=== PATIENT | female | born 1945 | race Caucasian/White ===

== ENCOUNTER 2017-06-06 07:48 | Day surgery (SDC) | payer MEDICARE, OTHER ==
[~2017-06-06 07:48] MED LIST: Propofol 200 MG/20 ML SDV ONE; fentaNYL 100 MCG/2 ML SDV ONE
[2017-06-06] MEDS ORDERED: Sodium Chloride 0.9% 10 ML Syringe FLUSH PRN (08:30)
[2017-06-06] MEDS ORDERED: Lidocaine 1%/Sod Bicarbonate in NS 8.4% 1 ML Syringe PRN (08:30)
[2017-06-06] MEDS ORDERED: Lactated Ringers 1,000 ML IV SCH (08:30)
--- NOTE | 2017-06-06 09:12 | PCM.PREANE ---
Preanesthetic Assessment - Procedure Proposed Procedure: Screening colonoscopy - Anesthesia/Transfusion/Family Hx Anesthesia History: Prior Anesthesia Without Reaction Family History of Anesthesia Reaction: No Transfusion History: No Prior Transfusion(s) Type of Transfusion Reactions: Reports: Unknown Intubation History: Unknown - Review of Systems General: No Symptoms Pulmonary: Other (MARBELLA with CPAP, PE 2009) Cardiovascular: Other (CAD, HTN, HLD) Gastrointestinal: No Symptoms Neurological: No Symptoms Other: Reports: None, Depression, Anxiety - Physical Assessment NPO Status Date: 06/05/17 NPO Status Time: 20:00 O2 Sat by Pulse Oximetry: 96 Respiratory Rate: 20 Vital Signs: Last Vital Signs Temp 37.0 C 06/06/17 08:05 Pulse 82 06/06/17 08:05 Resp 20 06/06/17 08:05 BP 196/97 H 06/06/17 08:05 Pulse Ox 96 06/06/17 08:05 Height: 1.68 m Weight: 127.459 kg ASA Class: 3 Mental Status: Alert & Oriented x3 Airway Class: Mallampati = 2 Dentition: Reports: Normal Dentition Thyro-Mental Finger Breadths: 3 Mouth Opening Finger Breadths: 3 ROM/Head Extension: Full Lungs: Clear to Auscultation, Normal Respiratory Effort Cardiovascular: Regular Rate, Regular Rhythm - Allergies Allergies/Adverse Reactions: Allergies Allergy/AdvReac Type Severity Reaction Status Date / Time risperidone Allergy Cannot Verified 06/05/17 14:42 Remember SSRI Allergy Cannot Uncoded 06/05/17 14:42 Remember - Blood Blood Available: No Product(s) Available: None - Anesthesia Plan Pre-Op Medication Ordered: None - Acknowledgements Anesthesia Type Planned: MAC Pt an Appropriate Candidate for the Planned Anesthesia: Yes Alternatives and Risks of Anesthesia Discussed w Pt/Guardian: Yes Pt/Guardian Understands and Agrees with Anesthesia Plan: Yes PreAnesthesia Questionnaire HEENT History: Reports: Impaired Vision Other HEENT History: wears tri-focals Cardiovascular History: Reports: CAD, High Cholesterol, Hypertension, Other ( See Below) Other Cardiovascular History: PE in lung Respiratory History: Reports: PE, Sleep Apnea Gastrointestinal History: Reports: None Genitourinary History: Reports: Urinary Incontinence [employer] History: Reports: Musculoskeletal History: Reports: Osteoarthritis Neurological History: Reports: None Psychiatric History: Reports: Anxiety, Depression, OCD, Schizophrenia Endocrine/Metabolic History: Reports: Obesity/BMI 30+ Hematologic History: Reports: None, Other (See Below) Immunologic History: Reports: None Oncologic (Cancer) History: Reports: None Dermatologic History: Reports: None - Infectious Disease History Infectious Disease History: Reports: Chicken Pox - Past Surgical History Head Surgeries/Procedures: Reports: None HEENT Surgical History: Reports: Tonsillectomy Cardiovascular Surgical History: Reports: None Respiratory Surgical History: Reports: None GI Surgical History: Reports: None Female Surgical History: Reports: Hysterectomy Male Surgical History: Reports: None Endocrine Surgical History: Reports: None Neurological Surgical History: Reports: None Musculoskeletal Surgical History: Reports: Hip Replacement Oncologic Surgical History: Reports: None Dermatological Surgical History: Reports: None - SUBSTANCE USE Smoking Status *Q: Never Smoker Second Hand Smoke Exposure: No Recreational Drug Use History: No - HOME MEDS Home Medications: Home Meds Potassium Chloride [Klor-Con M20] 1 tab PO BID 10/12/13 [History] Simvastatin [Zocor] 20 mg PO DAILY 10/12/13 [History] buPROPion HCl [Wellbutrin SR] 300 mg PO DAILY 10/12/13 [History] Aspirin 81 mg PO DAILY 11/17/15 [History] ClomiPRAMINE [ClomiPRAMINE HCl] 50 mg PO BID 11/17/15 [History] Ezetimibe [Zetia] 10 mg PO DAILY 11/17/15 [History] Lisinopril 20 mg PO QPM 11/17/15 [History] Acetaminophen [Tylenol Extra Strength] 1,000 mg PO Q6H PRN 06/05/17 [History] Aspirin [Aspirin EC] 500 mg PO DAILY PRN 06/05/17 [History] Cetirizine HCl [Zyrtec] 10 mg PO DAILY PRN 06/05/17 [History] LORazepam [Ativan] 0.5 mg PO BID PRN 06/05/17 [History] Mirabegron [Myrbetriq] 25 mg PO DAILY 06/05/17 [History] Multivitamin [Zoo Chews] 1 tab PO DAILY 06/05/17 [History] Nitroglycerin [Nitrostat] 0.4 mg SL Q5M PRN 06/05/17 [History] Oxybutynin Chloride [Ditropan Xl] 15 mg PO DAILY 06/05/17 [History] Polyethylene Glycol 3350 [MiraLAX] 1 dose PO Q48H 06/05/17 [History] Amoxicillin 4 cap PO ONETIME 06/06/17 [History] - CURRENT (IN HOUSE) MEDS Current Meds: Current Medications Lactated Ringer's (Ringers, Lactated) 1,000 mls @ 125 mls/hr IV ASDIRECTED JABARI Stop: 06/06/17 23:00 Last Admin: 06/06/17 08:15 Dose: 125 mls/hr Lidocaine/Sodium Bicarbonate (Buffered Lidocaine 1% In Ns 8.4%) 0.25 ml .XX ONETIME PRN PRN Reason: Prior to IV Start Stop: 06/06/17 18:00 Last Admin: 06/06/17 08:15 Dose: 0.25 ml Sodium Chloride (Saline Flush) 10 ml FLUSH ASDIRECTED PRN PRN Reason: Keep Vein Open Stop: 06/06/17 18:00 Discontinued Medications Fentanyl (Sublimaze) Confirm Administered Dose 100 mcg .ROUTE .STK-MED ONE Stop: 06/06/17 07:10 Propofol (Diprivan 20 Ml) Confirm Administered Dose 200 mg .ROUTE .STK-MED ONE Stop: 06/06/17 07:09
[2017-06-06] MEDS ORDERED: Propofol 200 MG/20 ML SDV ONE (09:42)
--- NOTE | 2017-06-06 10:07 | PCM48HPAN ---
Post Anesthesia Note - EVALUATION WITHIN 48HRS OF ANESTHETIC Vital Signs in Normal Range: Yes Patient Participated in Evaluation: Yes Respiratory Function Stable: Yes Airway Patent: Yes Cardiovascular Function Stable: Yes Hydration Status Stable: Yes Pain Control Satisfactory: Yes Nausea and Vomiting Control Satisfactory: Yes Mental Status Recovered: Yes
[2017-06-06 10:09] VITALS: BP 148/107
== END 2017-06-06 11:18 | disposition home or self-care (01) ==
LOC: JD.SDS 07:48
PROVIDERS: ATTEND Surgery
DX: Z12.11 Encounter for screening for malignant neoplasm of colon (principal); K57.30 Diverticulosis of large intestine without perforation or abscess without bleeding; D17.79 Benign lipomatous neoplasm of other sites; I25.10 Atherosclerotic heart disease of native coronary artery without angina pectoris; I10 Essential (primary) hypertension; F32.9 Major depressive disorder, single episode, unspecified; F41.9 Anxiety disorder, unspecified; G47.30 Sleep apnea, unspecified; E66.01 Morbid (severe) obesity due to excess calories; Z68.42 Body mass index [BMI] 45.0-49.9, adult; Z88.8 Allergy status to other drugs, medicaments and biological substances
CPT/HCPCS: G0121; J3010; J7120; 00810; J2704

== ENCOUNTER 2017-06-28 12:30 | Emergency (ER) | payer MEDICARE, OTHER ==
[2017-06-28 12:41] VITALS: BP 179/97
[2017-06-28] MEDS ORDERED: Meclizine 12.5 MG Tab PO ONE (13:07)
[2017-06-28] MEDS ORDERED: Sodium Chloride 0.9% 10 ML Syringe FLUSH PRN ×2 (13:07→15:11)
--- NOTE | 2017-06-28 13:12 | EDM.PDOC ---
ED HPI GENERAL MEDICAL PROBLEM - General Chief Complaint: Neurological Problem Stated Complaint: VERTIGO/NOSEBLEED Time Seen by Provider: 06/28/17 12:49 Source of Information: Reports: Patient History Limitations: Reports: No Limitations - History of Present Illness INITIAL COMMENTS - FREE TEXT/NARRATIVE: Patient is a 71-year-old female who presents to the ED complaining of dizziness. States 2 days ago she developed severe vertigo described as the room spinning. States the room spinning sensation has resolved but still experiences some dizziness with bending over. States a sensation of vertigo was only short acting resolve quickly. Since then she's been experiencing increased frequency of dizziness with bending over that resolves with standing back up. This a.m. developed mild bloody nose and has some fluid coming from her left ear. This was clear in nature. States it feels like her head is full but notes there is no sinus congestion, stuffy nose, runny nose, sore throat, cough, fever, headache, vision changes, chest pain, shortness of breath at rest, nausea/ vomiting, increased swelling to her legs, abdominal pain, or dysuria. She has no previous history of vertigo, strokes, or heart attack. She does have a history of blood clot to her lungs in 1999 with unclear etiology. She states with exertion she is more short of breath. Which is unusual. She has a history of coronary disease, high cholesterol, hypertension, sleep apnea, urinary incontinence, anxiety, depression, OCD, schizophrenia, obesity, and cataracts. Current medications include potassium chloride, simvastatin, Wellbutrin, aspirin , clomipramine, Zetia, lisinopril, acetaminophen, Zyrtec, lorazepam, Mirabegron , nitroglycerin, Ditropan, MiraLAX. See med list for dosages. Surgical history includes: Tonsillectomy, hysterectomy, hip replacement 2. - Related Data Allergies Allergy/AdvReac Type Severity Reaction Status Date / Time risperidone Allergy Cannot Verified 06/05/17 14:42 Remember SSRI Allergy Cannot Uncoded 06/05/17 14:42 Remember Home Meds: Home Meds Potassium Chloride [Klor-Con M20] 20 meq PO BID 10/12/13 [History] Simvastatin [Zocor] 20 mg PO DAILY 10/12/13 [History] buPROPion HCl [Wellbutrin SR] 300 mg PO DAILY 10/12/13 [History] Aspirin 81 mg PO DAILY 11/17/15 [History] ClomiPRAMINE [ClomiPRAMINE HCl] 50 mg PO BID 11/17/15 [History] Ezetimibe [Zetia] 10 mg PO DAILY 11/17/15 [History] Lisinopril 20 mg PO QPM 11/17/15 [History] Acetaminophen [Tylenol Extra Strength] 1,000 mg PO Q6H PRN 06/05/17 [History] Cetirizine HCl [Zyrtec] 10 mg PO DAILY PRN 06/05/17 [History] LORazepam [Ativan] 0.5 mg PO BID PRN 06/05/17 [History] Mirabegron [Myrbetriq] 25 mg PO DAILY 06/05/17 [History] Multivitamin [Zoo Chews] 1 tab PO DAILY 06/05/17 [History] Nitroglycerin [Nitrostat] 0.4 mg SL Q5M PRN 06/05/17 [History] Oxybutynin Chloride [Ditropan Xl] 15 mg PO DAILY 06/05/17 [History] Polyethylene Glycol 3350 [MiraLAX] 1 dose PO Q48H 06/05/17 [History] Apixaban [Eliquis] 5 mg PO ASDIRECTED #64 tablet 06/28/17 [Rx] Past Medical History HEENT History: Reports: Impaired Vision Other HEENT History: wears tri-focals Cardiovascular History: Reports: CAD, High Cholesterol, Hypertension, Other ( See Below) Other Cardiovascular History: PE in lung Respiratory History: Reports: PE, Sleep Apnea Gastrointestinal History: Reports: None Genitourinary History: Reports: Urinary Incontinence [employer] History: Reports: Musculoskeletal History: Reports: Osteoarthritis Neurological History: Reports: None Psychiatric History: Reports: Anxiety, Depression, OCD, Schizophrenia Endocrine/Metabolic History: Reports: Obesity/BMI 30+ Hematologic History: Reports: None Immunologic History: Reports: None Oncologic (Cancer) History: Reports: None Dermatologic History: Reports: None - Infectious Disease History Infectious Disease History: Reports: Chicken Pox - Past Surgical History Head Surgeries/Procedures: Reports: None HEENT Surgical History: Reports: Tonsillectomy Cardiovascular Surgical History: Reports: None Respiratory Surgical History: Reports: None GI Surgical History: Reports: None Female Surgical History: Reports: Hysterectomy Endocrine Surgical History: Reports: None Neurological Surgical History: Reports: None Musculoskeletal Surgical History: Reports: Hip Replacement Oncologic Surgical History: Reports: None Dermatological Surgical History: Reports: None Social & Family History - Family History Family Medical History: Noncontributory - Tobacco Use Smoking Status *Q: Unknown Ever Smoked Second Hand Smoke Exposure: No - Caffeine Use Caffeine Use: Reports: Coffee - Recreational Drug Use Recreational Drug Use: No - Living Situation & Occupation Living situation: Reports: , with Spouse Occupation: Retired ED ROS GENERAL - Review of Systems Review Of Systems: ROS reveals no pertinent complaints other than HPI. ED EXAM, DIZZINESS - Physical Exam Exam: See Below Exam Limited By: No Limitations General Appearance: Alert, WD/WN, Anxious Eye Exam: Bilateral Eye: EOMI, Nystagmus (none noted), PERRL Nystagmus: No: worsens with head to L, worsens with head to R, reproducible, reversible, constant, short duration Ears: Normal External Exam, Normal Canal, Hearing Grossly Normal, Normal TMs Nose: Normal Inspection, Normal Mucosa, No Blood Throat/Mouth: Normal Inspection, Normal Oropharynx, Normal Voice, No Airway Compromise Head Exam: Atraumatic, Normocephalic Neck: Normal Inspection, Supple, Non-Tender, Full Range of Motion Respiratory/Chest: No Respiratory Distress, Lungs Clear, Normal Breath Sounds, No Accessory Muscle Use, Chest Non-Tender Cardiovascular: Normal Peripheral Pulses, Regular Rate, Rhythm GI/Abdominal: Normal Bowel Sounds, Soft, Non-Tender, No Organomegaly, No Distention Neurological: Alert, Normal Mood/Affect, Normal Dorsiflexion, CN II-XII Intact, Normal Plantar Flexion, No Motor/Sensory Deficits, Oriented x 3 Back Exam: Normal Inspection, Full Range of Motion Extremities: Normal Inspection, Normal Range of Motion, Non-Tender, No Pedal Edema, Normal Capillary Refill Psychiatric: Normal Affect, Normal Mood Skin Exam: Warm, Dry, Intact, Normal Color, No Rash Course - Vital Signs Last Recorded V/S: Last Vital Signs Temp 97.5 F 06/28/17 12:40 Pulse 73 06/28/17 12:40 Resp 16 06/28/17 12:40 BP 179/97 H 06/28/17 12:40 Pulse Ox 98 06/28/17 12:40 Orthostatic Blood Pressure [ 176/102 Standing] Orthostatic Blood Pressure [ 167/98 Sitting] Orthostatic Blood Pressure [ 157/81 Supine] - Orders/Labs/Meds Orders: Active Orders 24 hr Category Date Time Status EKG Documentation Completion [RC] STAT Care 06/28/17 13:07 Active Orthostatic Vital Signs [RC] ASDIRECTED Care 06/28/17 13:07 Active Peripheral IV Care [RC] . DIRECTED Care 06/28/17 13:07 Active Chest PE [Ang Chest] [CT] Stat Exams 06/28/17 14:40 Taken Sodium Chloride 0.9% [Normal Saline] 1,000 ml Med 06/28/17 14:15 Active IV ASDIRECTED Sodium Chloride 0.9% [Normal Saline] 100 ml Med 06/28/17 15:15 Active IV ASDIRECTED Sodium Chloride 0.9% [Saline Flush] Med 06/28/17 13:07 Active 10 ml FLUSH ASDIRECTED PRN Sodium Chloride 0.9% [Saline Flush] Med 06/28/17 15:11 Active 10 ml FLUSH ONETIME PRN Peripheral IV Insertion Adult [OM.PC] Routine Oth 06/28/17 13:07 Ordered Medication Orders Sodium Chloride (Normal Saline) 1,000 mls @ 250 mls/hr IV ASDIRECTED JABARI Last Admin: 06/28/17 14:28 Dose: 250 mls/hr Sodium Chloride (Normal Saline) 100 mls @ 80 mls/hr IV ASDIRECTED JABARI Last Admin: 06/28/17 15:26 Dose: 80 mls/hr Sodium Chloride (Saline Flush) 10 ml FLUSH ASDIRECTED PRN PRN Reason: Keep Vein Open Last Admin: 06/28/17 14:05 Dose: 10 ml Sodium Chloride (Saline Flush) 10 ml FLUSH ONETIME PRN PRN Reason: IV FLUSH Last Admin: 06/28/17 15:26 Dose: 10 ml Labs: Laboratory Tests 06/28/17 06/28/17 06/28/17 Range/Units 13:25 13:25 13:25 WBC 6.34 (3.98-10.04) K/mm3 RBC 4.43 (3.98-5.22) M/mm3 Hgb 13.3 (11.2-15.7) gm/L Hct 41.0 (34.1-44.9) % MCV 92.6 (79.4-94.8) fl MCH 30.0 (25.6-32.2) pg MCHC 32.4 (32.2-35.5) g/dl RDW Std Deviation 48.6 H (36.4-46.3) fL Plt Count 311 (182-369) K/mm3 MPV 9.5 (9.4-12.3) fl Neut % (Auto) 66.9 (34.0-71.1) % Lymph % (Auto) 19.6 (19.3-51.7) % [place] % (Auto) 8.7 (4.7-12.5) % Eos % (Auto) 4.1 (0.7-5.8) Baso % (Auto) 0.5 (0.1-1.2) % Neut # (Auto) 4.25 (1.56-6.13) K/mm3 Lymph # (Auto) 1.24 (1.18-3.74) K/mm3 Gladwin # (Auto) 0.55 H (0.24-0.36) K/mm3 Eos # (Auto) 0.26 (0.04-0.36) K/mm3 Baso # (Auto) 0.03 (0.01-0.08) K/mm3 D-Dimer, Quantitative 1.08 H (0.19-0.59) mg/L Sodium 138 (136-145) mEq/L Potassium 3.9 (3.5-5.1) mEq/L Chloride 103 (98-107) mEq/L Carbon Dioxide 27 (21-32) mEq/L Anion Gap 11.9 (5-15) BUN 12 (7-18) mg/dL Creatinine 0.9 (0.55-1.02) mg/dL Est Cr Clr Drug Dosing 52.89 mL/min Estimated GFR (MDRD) > 60 (>60) mL/min BUN/Creatinine Ratio 13.3 L (14-18) Glucose 102 (83-115) mg/dL Calcium 9.0 (8.5-10.1) mg/dL Total Bilirubin 0.4 (0.2-1.0) mg/dL AST 22 (15-37) U/L ALT 30 (14-59) U/L Alkaline Phosphatase 120 H (46-116) U/L Troponin I 0.018 (0.00-0.056) ng/mL Total Protein 7.7 (6.4-8.2) g/dl Albumin 3.4 (3.4-5.0) g/dl Globulin 4.3 gm/dL Albumin/Globulin Ratio 0.8 L (1-2) TSH 3rd Generation 2.243 (0.358-3.74) uIU/mL Urine Color (Yellow) Urine Appearance (Clear) Urine pH (5.0-8.0) Ur Specific [place] (1.005-1.030) Urine Protein (Negative) Urine Glucose (UA) (Negative) Urine Ketones (Negative) Urine Occult Blood (Negative) Urine Nitrite (Negative) Urine Bilirubin (Negative) Urine Urobilinogen (0.2-1.0) Ur Leukocyte Esterase (Negative) Urine RBC (0-5) /hpf Urine WBC (0-5) /hpf Ur Epithelial Cells (0-5) /hpf Urine Bacteria (FEW) /hpf Urine Mucus (FEW) /hpf 06/28/17 Range/Units 13:52 WBC (3.98-10.04) K/mm3 RBC (3.98-5.22) M/mm3 Hgb (11.2-15.7) gm/L Hct (34.1-44.9) % MCV (79.4-94.8) fl MCH (25.6-32.2) pg MCHC (32.2-35.5) g/dl RDW Std Deviation (36.4-46.3) fL Plt Count (182-369) K/mm3 MPV (9.4-12.3) fl Neut % (Auto) (34.0-71.1) % Lymph % (Auto) (19.3-51.7) % Glad[place] % (Auto) (4.7-12.5) % Eos % (Auto) (0.7-5.8) Baso % (Auto) (0.1-1.2) % Neut # (Auto) (1.56-6.13) K/mm3 Lymph # (Auto) (1.18-3.74) K/mm3 Gladwin # (Auto) (0.24-0.36) K/mm3 Eos # (Auto) (0.04-0.36) K/mm3 Baso # (Auto) (0.01-0.08) K/mm3 D-Dimer, Quantitative (0.19-0.59) mg/L Sodium (136-145) mEq/L Potassium (3.5-5.1) mEq/L Chloride (98-107) mEq/L Carbon Dioxide (21-32) mEq/L Anion Gap (5-15) BUN (7-18) mg/dL Creatinine (0.55-1.02) mg/dL Est Cr Clr Drug Dosing mL/min Estimated GFR (MDRD) (>60) mL/min BUN/Creatinine Ratio (14-18) Glucose (83-115) mg/dL Calcium (8.5-10.1) mg/dL Total Bilirubin (0.2-1.0) mg/dL AST (15-37) U/L ALT (14-59) U/L Alkaline Phosphatase (46-116) U/L Troponin I (0.00-0.056) ng/mL Total Protein (6.4-8.2) g/dl Albumin (3.4-5.0) g/dl Globulin gm/dL Albumin/Globulin Ratio (1-2) TSH 3rd Generation (0.358-3.74) uIU/mL Urine Color Yellow (Yellow) Urine Appearance Clear (Clear) Urine pH 7.0 (5.0-8.0) Ur Specific [place] 1.025 (1.005-1.030) Urine Protein 1+ H (Negative) Urine Glucose (UA) Negative (Negative) Urine Ketones Negative (Negative) Urine Occult Blood Trace-intact H (Negative) Urine Nitrite Negative (Negative) Urine Bilirubin Negative (Negative) Urine Urobilinogen 0.2 (0.2-1.0) Ur Leukocyte Esterase Negative (Negative) Urine RBC 0-5 (0-5) /hpf Urine WBC 0-5 (0-5) /hpf Ur Epithelial Cells 5-10 H (0-5) /hpf Urine Bacteria Moderate H (FEW) /hpf Urine Mucus Moderate H (FEW) /hpf Meds: Medications Generic Name Dose Route Start Last Admin Trade Name Freq PRN Reason Stop Dose Admin Sodium Chloride 1,000 mls @ 250 mls/hr 06/28/17 14:15 06/28/17 14:28 Normal Saline IV 250 mls/hr ASDIRECTED JABARI Administration Sodium Chloride 100 mls @ 80 mls/hr 06/28/17 15:15 06/28/17 15:26 Normal Saline IV 80 mls/hr ASDIRECTED JABARI Administration Sodium Chloride 10 ml 06/28/17 13:07 06/28/17 14:05 Saline Flush FLUSH 10 ml ASDIRECTED PRN Administration Keep Vein Open Sodium Chloride 10 ml 06/28/17 15:11 06/28/17 15:26 Saline Flush FLUSH 10 ml ONETIME PRN Administration IV FLUSH Discontinued Medications Generic Name Dose Route Start Last Admin Trade Name Nanette PRN Reason Stop Dose Admin Apixaban 10 mg 06/28/17 17:25 06/28/17 17:39 Eliquis PO 06/28/17 17:26 10 mg ONETIME ONE Administration Iopamidol 100 ml 06/28/17 15:11 06/28/17 15:26 Isovue-370 (76%) IVPUSH 06/28/17 15:12 100 ml ONETIME ONE Administration Meclizine HCl 12.5 mg 06/28/17 13:07 06/28/17 13:18 Antivert PO 06/28/17 13:08 12.5 mg ONETIME ONE Administration - Re-Assessments/Exams Free Text/Narrative Re-Assessment/Exam: IV established. Administered meclizine 12.5 mg by mouth. Initial labs and studies include CBC, chem 14, troponin, TSH, d-dimer, UA, and EKG. 06/28/17 13:20 Orthostatic vitals were negative. 06/28/17 13:34 EKG sinus rhythm at a rate of 68 with left anterior fascicular block. No acute ST changes noted. 06/28/17 14:09 DDimer 1.08, Ordered NS 250 mls/hr in preparation for CTA of the chest. Awaiting for results of remaining labs. 06/28/17 14:42 Labs reviewed: CBC and chem 14 were essentially normal. TSH within normal limits. Troponin 0.018. UA positive for protein, trace blood, bacteria moderate, UA mucus moderate, epithelials 5-10 presumed contaminated. Due to elevated d-dimer and symptoms of dizziness along with shortness of breath with exertion I have ordered a CTA of the chest to evaluate for PE. She has a history of PE in the past. 06/28/17 15:56 CTA of the chest impression: Small peripheral pulmonary embolism in the right upper lobe. New 8 mm pulmonary nodule in lingual. Minimal sludge versus tiny calculi in the gallbladder. 1610 I have discussed lab results and CT study with the patient. Patient has a small PE to the right upper lobe. she states previous PE was the left lung. Patient was on warfarin with Lovenox injections with first PE. She required prolonged hospitalization because her INR would not increase. I offered to start the patient on xarelto, eliquis, or warfarin. Patient cannot make the decision on her own. Request son to be in the room to help make decision. 06/28/17 16:[address] scan with son. Discussed risks, benefits, and alternatives to each medication (xarelto, eliquis, and warfarin) with patient and son. They have elected to go with eliquis. Eliquis will have no interactions with current medications she is on. First dose of eliquis given here. Discharge instructions provided as documented. Departure - Departure Time of Disposition: 17:26 Disposition: Home, Self-Care 01 Condition: Good Clinical Impression: Pulmonary nodule, right, Dizziness, Dysfunctional autonomic nervous system Pulmonary embolism Qualifiers: Pulmonary embolism type: other Chronicity: acute Acute cor pulmonale presence: without acute cor pulmonale Qualified Code(s): I26.99 - Other pulmonary embolism without acute cor pulmonale Hematuria Qualifiers: Hematuria type: unspecified type Qualified Code(s): R31.9 - Hematuria, unspecified - Discharge Information Prescriptions: Apixaban [Eliquis] 5 mg PO ASDIRECTED #64 tablet Referrals: Jennifer Deleon MD [Primary Care Provider] - Forms: ED Department Discharge Additional Instructions: As discussed you have a small blood clot to your right lung. In addition a new 8 mm nodule was noted to the right lung as well. Treatment for the PE will be eliquis 10 mg twice a day for 6 days. Thereafter take 5mg twice a day. Continue taking all your home medications as prescribed. Beaware you are a fall risk thus if you fall and hit your head you can develop bleeding within your head which could be life threatening. Thus take your time with changing body positions and moving. In addition believe the dizziness is related to adverse reactions of the medications you are on and with autonomic dysfunction which will only exacerbate your dizziness. Please take your time with changing body position. If you feel dizzy sit back down and allow yourself to obtain equilibrium prior to attempting to move again. Keep well hydrated. Followup with PCP this coming week for reevaluation. You may need a inferior vena cava filter since this is your second PE. PCP can arrange. Return to the E.D. if you develop any new or worsening symptoms. PLEASE SEE BELOW FOR FURTHER INFORMATION ABOUT ELIQUIS. Also there is a small new 8 mm nodule noted to the right lung as well. Routine follow-up is required. Please see your PCP to arrange scheduled repeat CT studies. Also blood had blood present. Unknown cause. See PCP to ensure this resolves. Generic Name: apixaban Pronounced: a PIX a ban Brand Name: Eliquis What is the most important information I should know about apixaban? You should not take apixaban if you have an artificial heart valve, or if you have any active bleeding from a surgery, injury, or other cause. Apixaban can cause a very serious blood clot around your spinal cord if you undergo a spinal tap or receive spinal anesthesia (epidural). This type of blood clot can lead to long-term or permanent paralysis. Get emergency medical help if you have symptoms of a spinal cord blood clot such as back pain, numbness or muscle weakness in your lower body, or loss of bladder or bowel control. Do not stop taking apixaban unless your doctor tells you to. Stopping suddenly can increase your risk of blood clot or stroke. Your doctor may prescribe another medicine to prevent blood clots. What is apixaban? Apixaban keeps the platelets in your blood from coagulating (clotting). Apixaban is used in people with atrial fibrillation (a heart rhythm disorder) to lower the risk of stroke caused by a blood clot. Apixaban is also used after hip or knee replacement surgery to prevent a type of blood clot called deep vein thrombosis (DVT), which can lead to blood clots in the lungs (pulmonary embolism). Apixaban may also be used for purposes not listed in this medication guide. What should I discuss with my healthcare provider before taking apixaban? You should not take apixaban if you are allergic to it, if you have an artificial heart valve, or if you have any active bleeding from a surgery, injury, or other cause. Apixaban may cause you to bleed more easily, especially if you have a bleeding disorder that is inherited or caused by disease. To make sure apixaban is safe for you, tell your doctor if you have: kidney disease; liver disease; if you are older than 80; or if you weigh less than 132 pounds. Apixaban can cause a very serious blood clot around your spinal cord if you undergo a spinal tap or receive spinal anesthesia (epidural). This type of blood clot could cause long-term paralysis, and may be more likely to occur if: you have a spinal catheter in place or if a catheter has been recently removed; you have a history of spinal surgery or repeated spinal taps; you have recently had a spinal tap or epidural anesthesia; you are taking an NSAID (nonsteroidal anti-inflammatory drug)--ibuprofen (Advil , Motrin), naproxen (Aleve), diclofenac, indomethacin, meloxicam, and others; or you are using other medicines to treat or prevent blood clots. FDA category B. Apixaban is not expected to cause defects. However, taking this medicine during may increase the risk of bleeding while you are or during your delivery. Tell your doctor if you are or plan to become during treatment. It is not known whether apixaban passes into breast milk or if it could harm a nursing baby. You should not breast-feed while using this medicine. How should I take apixaban? Apixaban is usually taken twice per day. Follow all directions on your prescription label. Do not take this medicine in larger or smaller amounts or for longer than recommended. You may take apixaban with or without food. Apixaban can be given through a nasogastric (NG) feeding tube. Crush the tablet and mix the medicine in a syringe with 60 milliliters of 5% dextrose in water ( D5W). Give this mixture right away through the NG tube. Do not save for later use. Do not give this mixture by mouth. Because apixaban keeps your blood from coagulating (clotting) to prevent unwanted blood clots, this medicine can also make it easier for you to bleed, even from a minor injury such as a fall or a bump on the head. Contact your doctor or seek emergency medical attention if you fall or hit your head, or have any bleeding that will not stop. If you need surgery or dental work, tell the doctor or dentist ahead of time if you have taken apixaban within the past 24 hours. You may need to stop taking apixaban for a short time before you have surgery or other medical procedures. Do not stop taking apixaban unless your doctor tells you to. Stopping suddenly can increase your risk of blood clot or stroke. If you stop taking apixaban for any reason, your doctor may prescribe another medication to prevent blood clots until you start taking apixaban again. Use apixaban regularly to get the most benefit. Get your prescription refilled before you run out of medicine completely. Store at room temperature away from moisture and heat. What happens if I miss a dose? Take the missed dose as soon as you remember. Take your next dose the following day and stay on your once-daily schedule. Do not take extra medicine to make up the missed dose. What happens if I overdose? Seek emergency medical attention or call the Poison Help line at . What should I avoid while taking apixaban? Avoid activities that may increase your risk of bleeding or injury. Use extra care to prevent bleeding while shaving or brushing your teeth. What are the possible side effects of apixaban? Get emergency medical help if you have any of these signs of an allergic reaction: hives; difficult breathing; swelling of your face, lips, tongue, or throat. Call your doctor at once if you have: easy bruising, unusual bleeding (nose, mouth, vagina, or rectum), bleeding from wounds or needle injections, any bleeding that will not stop; heavy menstrual periods; headache, dizziness, weakness, feeling like you might pass out; red, pink, or brown urine; black or bloody stools, coughing up blood or vomit that looks like coffee grounds; numbness, tingling, or muscle weakness (especially in your legs and feet); or loss of movement in any part of your body. This is not a complete list of side effects and others may occur. Call your doctor for medical advice about side effects. You may report side effects to FDA at 3-255-TJT-8510. What other drugs will affect apixaban? Many drugs can interact with apixaban. Not all possible interactions are listed here. Tell your doctor about all your medications and any you start or stop using during treatment with apixaban, especially: Rosetta's wort; an antibiotic--clarithromycin, rifampin, telithromycin; antifungal medicine--itraconazole, ketoconazole, posaconazole, voriconazole; the hepatitis C medications boceprevir or telaprevir; HIV or AIDS medication--atazanavir, cobicistat (Stribild), fosamprenavir, indinavir, nelfinavir, ritonavir, saquinavir; or seizure medicine--carbamazepine, fosphenytoin, phenobarbital, phenytoin. Many other drugs (including some clxj-zcz-kgioett medicines) can increase your risk of bleeding, or your risk of developing blood clots around the brain or spinal cord during a spinal tap or epidural. It is very important to tell your doctor about all medicines you have recently used, especially: dabigatran, dalteparin, enoxaparin, fondaparinux, heparin, tinzaparin, warfarin , Coumadin, Jantoven; an antidepressant such as citalopram, duloxetine, escitalopram, fluoxetine ( Prozac), fluvoxamine, paroxetine, sertraline (Zoloft), trazodone, venlafaxine, vilazodone; an NSAID such as ibuprofen (Advil, Motrin), naproxen (Aleve), celecoxib (Celebrex), diclofenac, indomethacin, meloxicam, and others; or salicylates such as aspirin, Nuprin Backache Caplet, Kaopectate, KneeRelief, Pamprin Cramp Formula, Pepto-Bismol, Tricosal, Trilisate, and others. These lists are not complete and many other medicines can interact with apixaban. This includes prescription and [id number]-abc-gwgaaeb medicines, vitamins, and herbal products. Give a list of all your medicines to any healthcare provider who treats you. - My Orders Last 24 Hours: My Active Orders 06/28/17 13:07 EKG Documentation Completion [RC] STAT Orthostatic Vital Signs [RC] ASDIRECTED Peripheral IV Care [RC] . DIRECTED Sodium Chloride 0.9% [Saline Flush] 10 ml FLUSH ASDIRECTED PRN Peripheral IV Insertion Adult [OM.PC] Routine 06/28/17 14:15 Sodium Chloride 0.9% [Normal Saline] 1,000 ml IV ASDIRECTED 06/28/17 14:40 Chest PE [Ang Chest] [CT] Stat 06/28/17 15:11 Sodium Chloride 0.9% [Saline Flush] 10 ml FLUSH ONETIME PRN 06/28/17 15:15 Sodium Chloride 0.9% [Normal Saline] 100 ml IV ASDIRECTED - Assessment/Plan Last 24 Hours: My Active Orders 06/28/17 13:07 EKG Documentation Completion [RC] STAT Orthostatic Vital Signs [RC] ASDIRECTED Peripheral IV Care [RC] . DIRECTED Sodium Chloride 0.9% [Saline Flush] 10 ml FLUSH ASDIRECTED PRN Peripheral IV Insertion Adult [OM.PC] Routine 06/28/17 14:15 Sodium Chloride 0.9% [Normal Saline] 1,000 ml IV ASDIRECTED 06/28/17 14:40 Chest PE [Ang Chest] [CT] Stat 06/28/17 15:11 Sodium Chloride 0.9% [Saline Flush] 10 ml FLUSH ONETIME PRN 06/28/17 15:15 Sodium Chloride 0.9% [Normal Saline] 100 ml IV ASDIRECTED
[2017-06-28] MEDS ORDERED: Sodium Chloride 0.9% 1,000 ML IV SCH (14:15)
[2017-06-28] MEDS ORDERED: Iopamidol 755 Mg/ML 100 ML Bottle IVPUSH ONE (15:11)
[2017-06-28] MEDS ORDERED: Sodium Chloride 0.9% 100 ML IV SCH (15:15)
[2017-06-28] MEDS ORDERED: Apixaban 5 MG Tab PO ONE (17:25)
--- NOTE | 2017-07-01 07:59 | CT ---
CT chest Technique: Multiple axial sections were obtained from above the lung apices inferiorly through the lung bases. Intravenous contrast was utilized. Study has been performed as a pulmonary angiogram protocol. Comparison: Prior chest CT of 07/22/11. Findings: Minimal filling defect is appreciated within the right upper lobe branch. Difficult to exclude a very minimal pulmonary embolism, uncertain if this is significant given that there are no other findings of pulmonary embolism. Nodule is identified within the right lung base which measures 8.7 mm. This has slightly increased in size from previous exam. Small nodule also identified within the central aspect of the lingula measuring approximately 8.4 mm. This is also slightly increased in size from prior exam. Lungs otherwise are clear. Mild atherosclerotic calcification is noted within the thoracic aorta and within coronary arteries. Small mediastinal lymph nodes are seen believed to be within normal limits. Mild increased density is noted within the gallbladder most likely representing gallstones. Diffuse endplate spurring is noted within the spine. Several old healed right-sided and left-sided rib fractures are noted. Impression: 1. Nodule within the right lung base and lingula. These have slightly increased in size from previous studies. Given that previous exam was performed in 2011 uncertain if increase in size represents a very slowly growing neoplasm versus increasing size of granulomas. 2. Minimal pulmonary embolism within the upper right lung is possible. Uncertain if this is significant as no other findings of pulmonary embolism are seen. 3. Possible gallstones within the gallbladder. Other incidental findings. Diagnostic code #9 I agree with preliminary report issued by [facility] ([facility] report finalized on 06/28/17, 4:44 PM Central Time)
== END 2017-06-28 17:54 | disposition home or self-care (01) ==
LOC: JD.ED 12:30
DX: I26.99 Other pulmonary embolism without acute cor pulmonale (principal); R91.1 Solitary pulmonary nodule; G90.8 Other disorders of autonomic nervous system; R31.9 Hematuria, unspecified; E78.00 Pure hypercholesterolemia, unspecified; I10 Essential (primary) hypertension; Z79.899 Other long term (current) drug therapy; Z79.82 Long term (current) use of aspirin; Z88.8 Allergy status to other drugs, medicaments and biological substances
CPT/HCPCS: 36415; 71275; 80053; 81001; 84443; 84484; 85025; 85379; 93005; 96360; 96361; 99285; A9270; J7030; J7040; J7050; Q9967; 99284

== ENCOUNTER 2019-04-15 06:19 | Emergency (ER) | payer MEDICARE, OTHER ==
[2019-04-15] MEDS ORDERED: Oxymetazoline 0.05% Nasal Spray 30 ML Bottle NAS ONE (06:58)
--- NOTE | 2019-04-15 07:51 | EDM.PDOC ---
ED HPI GENERAL MEDICAL PROBLEM - General Chief Complaint: ENT Problem Stated Complaint: [facility] Time Seen by Provider: 04/15/19 06:55 Source of Information: Reports: Patient History Limitations: Reports: No Limitations - History of Present Illness INITIAL COMMENTS - FREE TEXT/NARRATIVE: The patient presents by [facility] for epistaxis. This started this morning at 5:15am. She does have a history of nose bleeds but she has not had one in awhile. She is on Warfirin for PEs. She had no trauma to the nose. She says it is bleeding from the right nostril. She had congestion on the right side of her nose for a few days. She has no fever, chills, or cough. She does wear CPAP at night. Onset: Sudden Duration: Hour(s): (5:15am) Severity: Moderate Improves with: Reports: None Worsens with: Reports: None Associated Symptoms: Reports: No Other Symptoms - Related Data Allergies Allergy/AdvReac Type Severity Reaction Status Date / Time risperidone Allergy Cannot Verified 04/15/19 06:28 Remember SSRI Allergy Cannot Uncoded 04/15/19 06:28 Remember Home Meds: Home Meds Potassium Chloride [Klor-Con M20] 20 meq PO BID 10/12/13 [History] Simvastatin [Zocor] 20 mg PO DAILY 10/12/13 [History] buPROPion HCl [Wellbutrin SR] 300 mg PO DAILY 10/12/13 [History] Aspirin 81 mg PO DAILY 11/17/15 [History] ClomiPRAMINE [ClomiPRAMINE HCl] 50 mg PO BID 11/17/15 [History] Ezetimibe [Zetia] 10 mg PO DAILY 11/17/15 [History] Lisinopril 20 mg PO BID 11/17/15 [History] LORazepam [Ativan] 0.5 mg PO BID PRN 06/05/17 [History] Nitroglycerin [Nitrostat] 0.4 mg SL Q5M PRN 06/05/17 [History] Polyethylene Glycol 3350 [MiraLAX] 1 dose PO Q48H 06/05/17 [History] Acetaminophen [Tylenol Arthritis] 1,300 mg PO Q8H PRN 04/15/19 [History] Albuterol [Ventolin HFA] 1 - 2 puff INH Q4HR PRN 04/15/19 [History] Furosemide [Lasix] 20 mg PO Q48H 04/15/19 [History] Multivit-Min/FA/Lycopene/Lut [Centrum Silver Tablet] 1 each PO DAILY 04/15/19 [ History] Mupirocin Calcium [Bactroban] 1 dose TOP ASDIRECTED 04/15/19 [History] Nystatin/Triamcinolone Crm [Mycolog Crm] 1 dose TOP BID 04/15/19 [History] Warfarin Sodium [Coumadin] 2.5 mg PO FR 04/15/19 [History] Warfarin Sodium [Coumadin] 5 mg PO SUMOTUWETHSA 04/15/19 [History] amLODIPine [Norvasc] 5 mg PO DAILY 04/15/19 [History] hydroCHLOROthiazide [Hydrochlorothiazide] 25 mg PO DAILY 04/15/19 [History] Past Medical History HEENT History: Reports: Impaired Vision Other HEENT History: wears tri-focals Cardiovascular History: Reports: CAD, High Cholesterol, Hypertension, Other ( See Below) Other Cardiovascular History: PE in lung Respiratory History: Reports: PE, Sleep Apnea Gastrointestinal History: Reports: None Genitourinary History: Reports: Urinary Incontinence 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: Musculoskeletal History: Reports: Osteoarthritis Neurological History: Reports: None Other Neuro History: Non specific tremors to hands Psychiatric History: Reports: Anxiety, Depression, OCD, Schizophrenia Endocrine/Metabolic History: Reports: Obesity/BMI 30+ Hematologic History: Reports: Anticoagulation Therapy Immunologic History: Reports: None Oncologic (Cancer) History: Reports: None Dermatologic History: Reports: None - Infectious Disease History Infectious Disease History: Reports: Chicken Pox - Past Surgical History Head Surgeries/Procedures: Reports: None HEENT Surgical History: Reports: Tonsillectomy Cardiovascular Surgical History: Reports: None Respiratory Surgical History: Reports: None GI Surgical History: Reports: None Female Surgical History: Reports: Hysterectomy Endocrine Surgical History: Reports: None Neurological Surgical History: Reports: None Musculoskeletal Surgical History: Reports: Hip Replacement Oncologic Surgical History: Reports: None Dermatological Surgical History: Reports: None Social & Family History - Family History Family Medical History: Noncontributory - Tobacco Use Smoking Status *Q: Never Smoker - Caffeine Use Caffeine Use: Reports: Coffee - Recreational Drug Use Recreational Drug Use: No - Living Situation & Occupation Living situation: Reports: , with Spouse Occupation: Retired ED ROS ENT - Review of Systems Review Of Systems: See Below Constitutional: Reports: No Symptoms HEENT: Reports: Nosebleed, Other (Congestion) Respiratory: Reports: No Symptoms Cardiovascular: Reports: No Symptoms Endocrine: Reports: No Symptoms GI/Abdominal: Reports: No Symptoms : Reports: No Symptoms Musculoskeletal: Reports: No Symptoms ED EXAM, ENT - Physical Exam Exam: See Below Exam Limited By: No Limitations General Appearance: Alert, No Apparent Distress Ears: Normal External Exam Nose: Active Bleeding (Mild bleeding from the right anterior septum) Respiratory/Chest: No Respiratory Distress ED ENT PROCEDURES - Epistaxis Procedure Indication: Epistaxis Recent anticoagulants/antiplatlets: Yes Uncontrolled HTN: No Recent septal/nasal surgery: No Site of bleeding: Right Nare Clearing of clots: Patient Blew Nose Topical Meds: Phenylephrine Ice pack to area: No Chemical cautery: Silver Nitrate Topical Complications: No Course - Vital Signs Last Recorded V/S: Last Vital Signs Temp 97.1 F 04/15/19 06:31 Pulse 100 04/15/19 06:31 Resp 18 04/15/19 06:31 BP 114/70 04/15/19 06:31 Pulse Ox 94 L 04/15/19 06:31 - Orders/Labs/Meds Labs: Laboratory Tests 04/15/19 04/15/19 Range/Units 07:15 07:15 WBC 8.21 (3.98-10.04) K/mm3 RBC 4.63 (3.98-5.22) M/mm3 Hgb 14.2 (11.2-15.7) gm/dl Hct 42.7 (34.1-44.9) % MCV 92.2 (79.4-94.8) fl MCH 30.7 (25.6-32.2) pg MCHC 33.3 (32.2-35.5) g/dl RDW Std Deviation 49.0 H (36.4-46.3) fL Plt Count 370 H (182-369) K/mm3 MPV 9.6 (9.4-12.3) fl Neut % (Auto) 76.1 H (34.0-71.1) % Lymph % (Auto) 13.6 L (19.3-51.7) % [place] % (Auto) 8.4 (4.7-12.5) % Eos % (Auto) 1.3 (0.7-5.8) Baso % (Auto) 0.4 (0.1-1.2) % Neut # (Auto) 6.24 H (1.56-6.13) K/mm3 Lymph # (Auto) 1.12 L (1.18-3.74) K/mm3 [place] # (Auto) 0.69 H (0.24-0.36) K/mm3 Eos # (Auto) 0.11 (0.04-0.36) K/mm3 Baso # (Auto) 0.03 (0.01-0.08) K/mm3 PT 42.4 H (9.7-12.0) SECONDS INR 4.22 Meds: Medications Discontinued Medications Generic Name Dose Route Start Last Admin Trade Name Freq PRN Reason Stop Dose Admin Oxymetazoline HCl 1 ml 04/15/19 06:58 04/15/19 07:27 Nasal Decongestant [place] KATHY 04/15/19 06:59 1 bottle ONETIME ONE Administration - Re-Assessments/Exams Free Text/Narrative Re-Assessment/Exam: 04/15/19 08:45 Her Hgb looks good. Her INR is supratherapeutic at 4.22. She is calling her coumadin clinic. She has no more bleeding. I will discharge her home. Departure - Departure Time of Disposition: 20:45 Disposition: Home, Self-Care 01 Condition: Good Clinical Impression: Epistaxis - Discharge Information *PRESCRIPTION DRUG MONITORING PROGRAM REVIEWED*: No *COPY OF PRESCRIPTION DRUG MONITORING REPORT IN PATIENT KEITH: No Referrals: Jennifer Deleon MD [Primary Care Provider] - 1 Week Forms: ED Department Discharge Additional Instructions: Put some antibiotic ointment or petroleum jelly in each nostril 2 times per day to keep it moist. Do that for about 3 to 5 days. Call your coumadin clinic to get direction on your next dose. Please return if you are worse.
[2019-04-15 09:00] VITALS: BP 98/74; PULSE 90
== END 2019-04-15 09:30 | disposition home or self-care (01) ==
LOC: JD.ED 06:19
DX: R04.0 Epistaxis (principal); E78.00 Pure hypercholesterolemia, unspecified; I10 Essential (primary) hypertension; F41.9 Anxiety disorder, unspecified; F32.9 Major depressive disorder, single episode, unspecified; Z79.01 Long term (current) use of anticoagulants; Z86.711 Personal history of pulmonary embolism; Z88.8 Allergy status to other drugs, medicaments and biological substances; Z79.82 Long term (current) use of aspirin; Z79.899 Other long term (current) drug therapy
CPT/HCPCS: 30901; 36415; 85025; 85610; 99283; A9270; 99282

== ENCOUNTER 2019-11-15 10:56 | Emergency (ER) | payer MEDICARE, OTHER ==
[2019-11-15 11:12] VITALS: BP 132/74; PULSE 76
[2019-11-15] MEDS ORDERED: Oxymetazoline 0.05% Nasal Spray 30 ML Bottle NAS ONE (11:17)
--- NOTE | 2019-11-15 11:46 | EDM.PDOC ---
ED HPI GENERAL MEDICAL PROBLEM - General Chief Complaint: ENT Problem Stated Complaint: NOSE BLEED Time Seen by Provider: 11/15/19 11:03 Source of Information: Reports: Patient History Limitations: Reports: No Limitations - History of Present Illness INITIAL COMMENTS - FREE TEXT/NARRATIVE: Patient is a 74-year-old female who presents to the emergency department with complaints of a right-sided nosebleed that started around 1030 this morning. Patient states since that time it has stopped bleeding a couple times but has resumed. She does also complain of blood running down her oropharynx. Patient is on Coumadin. States that she spoke to her Coumadin clinic prior to coming here and they requested that we draw PT/INR and contact them with the result so that they may adjust her dose as needed. - Related Data Allergies Allergy/AdvReac Type Severity Reaction Status Date / Time risperidone Allergy Cannot Verified 04/15/19 06:28 Remember SSRI Allergy Cannot Uncoded 04/15/19 06:28 Remember Home Meds: Home Meds Potassium Chloride [Klor-Con M20] 20 meq PO BID 10/12/13 [History] Simvastatin [Zocor] 20 mg PO DAILY 10/12/13 [History] buPROPion HCL [Wellbutrin SR] 300 mg PO DAILY 10/12/13 [History] Aspirin 81 mg PO DAILY 11/17/15 [History] ClomiPRAMINE [ClomiPRAMINE HCl] 50 mg PO BID 11/17/15 [History] Ezetimibe [Zetia] 10 mg PO DAILY 11/17/15 [History] Lisinopril 20 mg PO BID 11/17/15 [History] LORazepam [Ativan] 0.5 mg PO BID PRN 06/05/17 [History] Nitroglycerin [Nitrostat] 0.4 mg SL Q5M PRN 06/05/17 [History] Polyethylene Glycol 3350 [MiraLAX] 1 dose PO Q48H 06/05/17 [History] Acetaminophen [Tylenol Arthritis] 1,300 mg PO Q8H PRN 04/15/19 [History] Albuterol [Ventolin HFA] 1 - 2 puff INH Q4HR PRN 04/15/19 [History] Furosemide [Lasix] 20 mg PO Q48H 04/15/19 [History] Multivit-Min/FA/Lycopen/Lutein [Centrum Silver Tablet] 1 each PO DAILY 04/15/19 [History] Mupirocin Calcium [Bactroban] 1 dose TOP ASDIRECTED 04/15/19 [History] Nystatin/Triamcinolone Crm [Mycolog Crm] 1 dose TOP BID 04/15/19 [History] Warfarin Sodium [Coumadin] 2.5 mg PO FR 04/15/19 [History] Warfarin Sodium [Coumadin] 5 mg PO SUMOTUWETHSA 04/15/19 [History] amLODIPine [Norvasc] 5 mg PO DAILY 04/15/19 [History] guaiFENesin [Mucinex] 600 mg PO Q12H 04/15/19 [History] hydroCHLOROthiazide [Hydrochlorothiazide] 25 mg PO DAILY 04/15/19 [History] Past Medical History HEENT History: Reports: Impaired Vision Other HEENT History: wears tri-focals Cardiovascular History: Reports: CAD, High Cholesterol, Hypertension, Other ( See Below) Other Cardiovascular History: PE in lung Respiratory History: Reports: PE, Sleep Apnea Gastrointestinal History: Reports: None Genitourinary History: Reports: Urinary Incontinence 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: Musculoskeletal History: Reports: Osteoarthritis Neurological History: Reports: None Other Neuro History: Non specific tremors to hands Psychiatric History: Reports: Anxiety, Depression, OCD, Schizophrenia Endocrine/Metabolic History: Reports: Obesity/BMI 30+ Hematologic History: Reports: Anticoagulation Therapy Immunologic History: Reports: None Oncologic (Cancer) History: Reports: None Dermatologic History: Reports: None - Infectious Disease History Infectious Disease History: Reports: Chicken Pox - Past Surgical History Head Surgeries/Procedures: Reports: None HEENT Surgical History: Reports: Tonsillectomy Cardiovascular Surgical History: Reports: None Respiratory Surgical History: Reports: None GI Surgical History: Reports: None Female Surgical History: Reports: Hysterectomy Endocrine Surgical History: Reports: None Neurological Surgical History: Reports: None Musculoskeletal Surgical History: Reports: Hip Replacement Oncologic Surgical History: Reports: None Dermatological Surgical History: Reports: None Social & Family History - Family History Family Medical History: Noncontributory - Tobacco Use Smoking Status *Q: Never Smoker Second Hand Smoke Exposure: No - Caffeine Use Caffeine Use: Reports: Coffee - Living Situation & Occupation Living situation: Reports: , with Spouse Occupation: Retired ED ROS ENT - Review of Systems Review Of Systems: Comprehensive ROS is negative, except as noted in HPI. ED EXAM, ENT - Physical Exam Exam: See Below Exam Limited By: No Limitations General Appearance: Alert, WD/WN, No Apparent Distress Nose: Dried Blood, Other (Pinpoint area of redness to the anterior right nasal septum which was likely the source of the bleeding.). No: Active Bleeding Mouth/Throat: Other (Traces of blood in the oropharynx. No obvious blood running down the oropharynx. Patient did clear a blood clot.) Respiratory/Chest: No Respiratory Distress, Lungs Clear, Normal Breath Sounds, No Accessory Muscle Use, Chest Non-Tender Cardiovascular: Normal Peripheral Pulses, Regular Rate, Rhythm, No Edema, No Gallop, No JVD, No Murmur, No Rub Neurological: Alert, Oriented, CN II-XII Intact, Normal Cognition, Normal Gait, Normal Reflexes, No Motor/Sensory Deficits Psychiatric: Normal Affect, Normal Mood Skin: Warm, Dry, Intact, Normal Color, No Rash ED ENT PROCEDURES - Epistaxis Procedure Indication: Epistaxis, Controlled Recent anticoagulants/antiplatlets: Yes Uncontrolled HTN: No Recent septal/nasal surgery: No Site of bleeding: Right Nare Topical Meds: Other (Oxymetazoline) Ice pack to area: No Chemical cautery: Silver Nitrate Topical Posterior packing: Long Inflatable Nasal Tampon Post cautery: Antibiotic Ointment Complications: No Complication Description: Cautery with silver nitrate performed to pinpoint area of redness on the nasal septum which is likely the cause of the bleeding. No further bleeding has been noted while in the emergency department. Course - Vital Signs Last Recorded V/S: Last Vital Signs Temp 97.8 F 11/15/19 11:08 Pulse 76 11/15/19 11:08 Resp 16 11/15/19 11:08 BP 132/74 11/15/19 11:08 Pulse Ox 100 11/15/19 11:08 - Orders/Labs/Meds Labs: Laboratory Tests 11/15/19 Range/Units 11:30 PT 25.2 H D (9.7-12.0) SECONDS INR 2.43 Meds: Medications Discontinued Medications Generic Name Dose Route Start Last Admin Trade Name Freq PRN Reason Stop Dose Admin Oxymetazoline HCl 1 ml 11/15/19 11:17 11/15/19 11:20 Nasal Decongestant [place] KATHY 11/15/19 11:18 1 ml ONETIME ONE Administration - Re-Assessments/Exams Free Text/Narrative Re-Assessment/Exam: 11/15/19 12:05 Patient has had no further bleeding from her nose after cauterization with silver nitrate. He applied bacitracin ointment into her nare. Spoke with Sonam at the [facility] and updated her on an INR of 2.43 per the patient's request. She stated she will call the patient later if there is any dose adjustments required. We will discharge the patient home. I did send the bottle of Afrin with her and she also has a nose clip that she keeps. Discharge instructions as documented. 11/15/19 12:28 During the discharge process, patient began to have blood running down her oropharynx again. On exam, no source of bleeding was visible in the anterior nare. She did have some blood running down her oropharynx. A anterior posterior Rhino Rocket was inserted. Patient tolerated well. We will have her sit for a while to make sure the bleeding does not resume. 11/15/19 1300 There is been no further bleeding. We will discharge patient home with instructions to return if if the bleeding should resume. Discharge instructions as documented. Departure - Departure Time of Disposition: 13:00 Disposition: Home, Self-Care 01 Condition: Good Clinical Impression: Epistaxis - Discharge Information *PRESCRIPTION DRUG MONITORING PROGRAM REVIEWED*: No *COPY OF PRESCRIPTION DRUG MONITORING REPORT IN PATIENT KEITH: No Instructions: Nosebleed, [id number] Referrals: Jennifer Deleon MD [Primary Care Provider] - Forms: ED Department Discharge Additional Instructions: You were seen in the emergency department today for a nosebleed to your right nare. The bleeding had stopped once you arrived to the ER. On exam, there was an area of redness that was likely the source of the bleed. This was cauterized with silver nitrate. Unfortunately, bleeding did resume from the posterior portion of your nare. To control this bleeding a Rhino Rocket was inserted. This should stay in until tomorrow afternoon. When you are ready to remove it, use a syringe provided and deflate the balloon. You may then just pull on the Rhino Rocket to remove it. After the Rhino Rocket is removed, try to avoid blowing your nose for 24 hours. Recommend that you apply antibiotic ointment or Vaseline to the nares a few times daily to keep it moist. If it should start bleeding again apply your clip and lean forward. You may try using a couple sprays of Afrin into the nare as this constrict the blood vessels and can help stop the bleeding. If the bleeding does not stop after about 15-20 minutes, please return to the emergency department. Your INR today was 2.43. [facility] has been updated of this and stated that they will contact you later. Sepsis Event Note - Evaluation Sepsis Screening Result: No Definite Risk - Focused Exam Vital Signs: Vital Signs Temp Pulse Resp BP Pulse Ox 11/15/19 11:08 97.8 F 76 16 132/74 100 Date Exam was Performed: 11/15/19 Time Exam was Performed: 21:14
== END 2019-11-15 13:00 | disposition home or self-care (01) ==
LOC: JD.ED 10:56
DX: R04.0 Epistaxis (principal); Z88.8 Allergy status to other drugs, medicaments and biological substances; I25.10 Atherosclerotic heart disease of native coronary artery without angina pectoris; E78.00 Pure hypercholesterolemia, unspecified; I10 Essential (primary) hypertension; M19.90 Unspecified osteoarthritis, unspecified site; F41.9 Anxiety disorder, unspecified; F32.9 Major depressive disorder, single episode, unspecified; F20.9 Schizophrenia, unspecified; E66.9 Obesity, unspecified; Z79.82 Long term (current) use of aspirin; Z79.01 Long term (current) use of anticoagulants; Z79.899 Other long term (current) drug therapy; Z68.41 Body mass index [BMI] 40.0-44.9, adult
CPT/HCPCS: 30903; 36415; 85610; 99283-25; A9270-GY

== ENCOUNTER 2019-11-15 17:43 | Emergency (ER) | payer MEDICARE, OTHER ==
[2019-11-15 17:57] VITALS: BP 134/59; PULSE 75
--- NOTE | 2019-11-15 19:51 | EDM.PDOC ---
<IjeomaClifton Gabbie - Last Filed: 11/15/19 19:45> ED HPI GENERAL MEDICAL PROBLEM - General Chief Complaint: ENT Problem Stated Complaint: NOSE BLEED NOT BETTER Time Seen by Provider: 11/15/19 17:55 - History of Present Illness INITIAL COMMENTS - FREE TEXT/NARRATIVE: 74-year-old female presents the emergency room with a recurrent worsening nosebleed. Patient was seen here earlier today with a nosebleed ultimately had a 7.5 Rhino Rocket placed in her right naris. The patient is on Coumadin had a therapeutic INR that was approximately 2.5. The provider that initially worked her up and thought maybe perhaps she had a small anterior bleed but was not totally convinced she tried cauterizing this and observed her for quite some time and she did pretty well by the time they were discussing her going home she started having profuse bleeding ultimately she had the Rhino Rocket placed and had good control of her nose bleeding before going home. The patient tried to put another cc of air in it at home and this did not seem to help when the bleeding returned. The provider informs me that she put in about 2 cc of air and the patient had added another cc of air for a total of 3 cc. Patient is on Coumadin for recurrent blood clots. - Related Data Allergies Allergy/AdvReac Type Severity Reaction Status Date / Time risperidone Allergy Cannot Verified 04/15/19 06:28 Remember SSRI Allergy Cannot Uncoded 04/15/19 06:28 Remember Home Meds: Home Meds Potassium Chloride [Klor-Con M20] 20 meq PO BID 10/12/13 [History] Simvastatin [Zocor] 20 mg PO DAILY 10/12/13 [History] buPROPion HCL [Wellbutrin SR] 300 mg PO DAILY 10/12/13 [History] Aspirin 81 mg PO DAILY 11/17/15 [History] ClomiPRAMINE [ClomiPRAMINE HCl] 50 mg PO BID 11/17/15 [History] Ezetimibe [Zetia] 10 mg PO DAILY 11/17/15 [History] Lisinopril 20 mg PO BID 11/17/15 [History] LORazepam [Ativan] 0.5 mg PO BID PRN 06/05/17 [History] Nitroglycerin [Nitrostat] 0.4 mg SL Q5M PRN 06/05/17 [History] Polyethylene Glycol 3350 [MiraLAX] 1 dose PO Q48H 06/05/17 [History] Acetaminophen [Tylenol Arthritis] 1,300 mg PO Q8H PRN 04/15/19 [History] Albuterol [Ventolin HFA] 1 - 2 puff INH Q4HR PRN 04/15/19 [History] Furosemide [Lasix] 20 mg PO Q48H 04/15/19 [History] Multivit-Min/FA/Lycopen/Lutein [Centrum Silver Tablet] 1 each PO DAILY 04/15/19 [History] Mupirocin Calcium [Bactroban] 1 dose TOP ASDIRECTED 04/15/19 [History] Nystatin/Triamcinolone Crm [Mycolog Crm] 1 dose TOP BID 04/15/19 [History] Warfarin Sodium [Coumadin] 2.5 mg PO FR 04/15/19 [History] Warfarin Sodium [Coumadin] 5 mg PO SUMOTUWETHSA 04/15/19 [History] amLODIPine [Norvasc] 5 mg PO DAILY 04/15/19 [History] guaiFENesin [Mucinex] 600 mg PO Q12H 04/15/19 [History] hydroCHLOROthiazide [Hydrochlorothiazide] 25 mg PO DAILY 04/15/19 [History] Past Medical History HEENT History: Reports: Impaired Vision Other HEENT History: wears tri-focals Cardiovascular History: Reports: CAD, High Cholesterol, Hypertension, Other ( See Below) Other Cardiovascular History: PE in lung Respiratory History: Reports: PE, Sleep Apnea Gastrointestinal History: Reports: None Genitourinary History: Reports: Urinary Incontinence 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: Musculoskeletal History: Reports: Osteoarthritis Neurological History: Reports: None Other Neuro History: Non specific tremors to hands Psychiatric History: Reports: Anxiety, Depression, OCD, Schizophrenia Endocrine/Metabolic History: Reports: Obesity/BMI 30+ Hematologic History: Reports: Anticoagulation Therapy Immunologic History: Reports: None Oncologic (Cancer) History: Reports: None Dermatologic History: Reports: None - Infectious Disease History Infectious Disease History: Reports: Chicken Pox - Past Surgical History Head Surgeries/Procedures: Reports: None HEENT Surgical History: Reports: Tonsillectomy Cardiovascular Surgical History: Reports: None Respiratory Surgical History: Reports: None GI Surgical History: Reports: None Female Surgical History: Reports: Hysterectomy Endocrine Surgical History: Reports: None Neurological Surgical History: Reports: None Musculoskeletal Surgical History: Reports: Hip Replacement Oncologic Surgical History: Reports: None Dermatological Surgical History: Reports: None Social & Family History - Family History Family Medical History: Noncontributory - Tobacco Use Smoking Status *Q: Never Smoker Second Hand Smoke Exposure: No - Caffeine Use Caffeine Use: Reports: Coffee - Living Situation & Occupation Living situation: Reports: , with Spouse Occupation: Retired ED ROS ENT - Review of Systems Review Of Systems: See Below Constitutional: Reports: No Symptoms HEENT: Reports: Nosebleed Respiratory: Reports: No Symptoms Cardiovascular: Reports: No Symptoms ED EXAM, ENT - Physical Exam Exam: See Below Nose: Other (I inserted 3-1/2 more cc of air into the catheter and the seem to help but the bleeding continued) Mouth/Throat: Other (Active bleeding and clots in the posterior pharynx) Respiratory/Chest: No Respiratory Distress, Lungs Clear, Normal Breath Sounds Cardiovascular: Regular Rate, Rhythm, No Edema, No Murmur ED ENT PROCEDURES - Epistaxis Procedure Indication: Epistaxis, Uncontrolled Recent anticoagulants/antiplatlets: Yes Uncontrolled HTN: No Recent septal/nasal surgery: No Site of bleeding: Right Nare Clearing of clots: Patient Blew Nose Posterior packing: Long Inflatable Nasal Tampon Complications: Yes Complication Description: Plan removed the first catheter after we could control the bleeding with manipulating the volume of air and there. I had the patient blow her nose thoroughly after this catheter was removed attempted to place the 2 balloon posterior packing and and despite multiple attempts cannot get this into proper position I went back to a 7.5 anterior posterior single balloon packing and got this into position she was bleeding a little bit anteriorly withdrew it a little bit and with 6 cc of air was able to stop the bleeding. After she was doing well she complained of some discomfort and I took a cc of air out leaving a total of 5 cc in and she feels much better at this point Course - Vital Signs Last Recorded V/S: Last Vital Signs Temp 97.5 F 11/15/19 17:54 Pulse 75 11/15/19 17:54 Resp 16 11/15/19 17:54 BP 134/59 L 11/15/19 17:54 Pulse Ox 94 L 11/15/19 17:54 - Orders/Labs/Meds Labs: Laboratory Tests 11/15/19 11/15/19 Range/Units 19:19 19:19 WBC 7.85 (3.98-10.04) K/mm3 RBC 4.40 (3.98-5.22) M/mm3 Hgb 12.9 (11.2-15.7) gm/dl Hct 40.6 (34.1-44.9) % MCV 92.3 (79.4-94.8) fl MCH 29.3 (25.6-32.2) pg MCHC 31.8 L (32.2-35.5) g/dl RDW Std Deviation 53.5 H (36.4-46.3) fL Plt Count 352 (182-369) K/mm3 MPV 9.7 (9.4-12.3) fl Neut % (Auto) 69.2 (34.0-71.1) % Lymph % (Auto) 16.2 L (19.3-51.7) % [place] % (Auto) 11.3 (4.7-12.5) % Eos % (Auto) 2.7 (0.7-5.8) Baso % (Auto) 0.5 (0.1-1.2) % Neut # (Auto) 5.43 (1.56-6.13) K/mm3 Lymph # (Auto) 1.27 (1.18-3.74) K/mm3 [place] # (Auto) 0.89 H (0.24-0.36) K/mm3 Eos # (Auto) 0.21 (0.04-0.36) K/mm3 Baso # (Auto) 0.04 (0.01-0.08) K/mm3 PT 25.3 H (9.7-12.0) SECONDS INR 2.44 - Re-Assessments/Exams Free Text/Narrative Re-Assessment/Exam: 11/15/19 19:55 At this point his change of shift the patient is stable bleeding appears to have stopped she will be observed for more time CBC and repeat INR is pending further care and disposition per Denisse Jacobson nurse practitioner Departure - Departure Disposition: Home, Self-Care 01 Clinical Impression: Epistaxis - Discharge Information Referrals: Jennifer Deleon MD [Primary Care Provider] - Forms: ED Department Discharge Additional Instructions: You were seen in the emergency department tonight for a recurrence of your right -sided nosebleed. The nasal packing was changed and has been effective at stopping the bleeding. Recommend that you keep this packing in until the afternoon of Friday, november 18. After that time, you may deflate the balloon with a syringe were provided or cut the plastic tube to deflate the packing and pull the packing out. If you should have any recurrence of bleeding, recommend that you return to the emergency department right away. You may call the ambulance to transport you to the ER. Recommend that you follow-up with your primary care provider as scheduled tomorrow. If you experience any problems, please do not hesitate to return to the emergency department. Sepsis Event Note - Evaluation Sepsis Screening Result: No Definite Risk - Focused Exam Vital Signs: Vital Signs Temp Pulse Resp BP Pulse Ox 11/15/19 17:54 97.5 F 75 16 134/59 L 94 L Date Exam was Performed: 11/15/19 Time Exam was Performed: 19:45 <Denisse Jacobson - Last Filed: 11/15/19 20:23> Course - Re-Assessments/Exams Free Text/Narrative Re-Assessment/Exam: 11/15/19 20:18 Hemoglobin was found to be normal at 12.9, hematocrit 40.6, INR 2.44. Nasal packing has been in for a little over an hour and a half and she continues to have no active bleeding. We will discharge her home with the understanding that if the bleeding should resume, she should return to the emergency department immediately. She is in agreement with this plan and verbalized that she will call the ambulance if it starts bleeding as she has no one to transport her. I agreed that this is a good plan. I did also speak with her daughter in [place] and she is in agreement with this plan. Discharge instructions as documented. Departure - Departure Time of Disposition: 20:18 Condition: Good Sepsis Event Note - Focused Exam Date Exam was Performed: 11/15/19 Time Exam was Performed: 20:17
== END 2019-11-15 20:35 | disposition home or self-care (01) ==
LOC: JD.ED 17:43
DX: R04.0 Epistaxis (principal); I25.10 Atherosclerotic heart disease of native coronary artery without angina pectoris; E78.00 Pure hypercholesterolemia, unspecified; I10 Essential (primary) hypertension; M19.90 Unspecified osteoarthritis, unspecified site; F41.9 Anxiety disorder, unspecified; F32.9 Major depressive disorder, single episode, unspecified; F20.9 Schizophrenia, unspecified; E66.9 Obesity, unspecified; Z79.82 Long term (current) use of aspirin; Z79.01 Long term (current) use of anticoagulants; Z79.899 Other long term (current) drug therapy; Z68.41 Body mass index [BMI] 40.0-44.9, adult; Z88.8 Allergy status to other drugs, medicaments and biological substances
CPT/HCPCS: 30905; 36415; 85025; 85610; 99283-25

== ENCOUNTER 2020-04-19 17:55 | Emergency (ER) | payer MEDICARE, OTHER ==
--- NOTE | 2020-04-19 19:54 | EDM.PDOC ---
ED HPI GENERAL MEDICAL PROBLEM - General Chief Complaint: Trauma Stated Complaint: [facility] Time Seen by Provider: 04/19/20 18:03 Source of Information: Reports: Patient, RN Notes Reviewed - History of Present Illness INITIAL COMMENTS - FREE TEXT/NARRATIVE: 74 yr old female tripped, fell, hit the back of her head hard on garage cement floor a short time ago. she states her feet got tangled up with her walker going down a step to the garage level. Was dazed briefly. Mild posterior Perez. No neck, back, chest, hip or other discomfort. On Coumadin. Right Knee Pain Score (Numeric/FACES): 9 - Related Data Allergies Allergy/AdvReac Type Severity Reaction Status Date / Time risperidone Allergy Cannot Verified 04/19/20 18:05 Remember SSRI Allergy Cannot Uncoded 04/19/20 18:05 Remember Home Meds: Home Meds Potassium Chloride [Klor-Con M20] 20 meq PO BID 10/12/13 [History] Simvastatin [Zocor] 20 mg PO DAILY 10/12/13 [History] buPROPion HCL [Wellbutrin SR] 300 mg PO DAILY 10/12/13 [History] Aspirin 81 mg PO DAILY 11/17/15 [History] ClomiPRAMINE [ClomiPRAMINE HCl] 50 mg PO BID 11/17/15 [History] Ezetimibe [Zetia] 10 mg PO DAILY 11/17/15 [History] Lisinopril 20 mg PO BID 11/17/15 [History] LORazepam [Ativan] 0.5 mg PO BID PRN 06/05/17 [History] Nitroglycerin [Nitrostat] 0.4 mg SL Q5M PRN 06/05/17 [History] Polyethylene Glycol 3350 [MiraLAX] 1 dose PO Q48H 06/05/17 [History] Acetaminophen [Tylenol Arthritis] 1,300 mg PO Q8H PRN 04/15/19 [History] Albuterol [Ventolin HFA] 1 - 2 puff INH Q4HR PRN 04/15/19 [History] Furosemide [Lasix] 20 mg PO Q48H 04/15/19 [History] Multivit-Min/FA/Lycopen/Lutein [Centrum Silver Tablet] 1 each PO DAILY 04/15/19 [History] Mupirocin Calcium [Bactroban] 1 dose TOP ASDIRECTED 04/15/19 [History] Nystatin/Triamcinolone Crm [Mycolog Crm] 1 dose TOP BID 04/15/19 [History] Warfarin Sodium [Coumadin] 2.5 mg PO FR 04/15/19 [History] Warfarin Sodium [Coumadin] 5 mg PO SUMOTUWETHSA 04/15/19 [History] amLODIPine [Norvasc] 5 mg PO DAILY 04/15/19 [History] guaiFENesin [Mucinex] 600 mg PO Q12H 04/15/19 [History] hydroCHLOROthiazide [Hydrochlorothiazide] 25 mg PO DAILY 04/15/19 [History] Past Medical History HEENT History: Reports: Impaired Vision Other HEENT History: wears tri-focals Cardiovascular History: Reports: CAD, High Cholesterol, Hypertension, Other (See Below) Other Cardiovascular History: PE in lung Respiratory History: Reports: PE, Sleep Apnea Gastrointestinal History: Reports: None Genitourinary History: Reports: Urinary Incontinence 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: Musculoskeletal History: Reports: Osteoarthritis Neurological History: Reports: None Other Neuro History: Non specific tremors to hands Psychiatric History: Reports: Anxiety, Depression, OCD, Schizophrenia Endocrine/Metabolic History: Reports: Obesity/BMI 30+ Hematologic History: Reports: Anticoagulation Therapy Immunologic History: Reports: None Oncologic (Cancer) History: Reports: None Dermatologic History: Reports: None - Infectious Disease History Infectious Disease History: Reports: Chicken Pox - Past Surgical History HEENT Surgical History: Reports: Tonsillectomy Cardiovascular Surgical History: Reports: None Respiratory Surgical History: Reports: None Female Surgical History: Reports: Hysterectomy Musculoskeletal Surgical History: Reports: Hip Replacement Oncologic Surgical History: Reports: None Social & Family History - Family History Family Medical History: Noncontributory - Tobacco Use Tobacco Use Status *Q: Never Tobacco User - Caffeine Use Caffeine Use: Reports: None - Recreational Drug Use Recreational Drug Use: No - Living Situation & Occupation Living situation: Reports: , with Spouse Occupation: Retired Review of Systems - Review of Systems Review Of Systems: See Below Constitutional: Reports: No Symptoms Eyes: Reports: No Symptoms Ears: Reports: No Symptoms Nose: Reports: No Symptoms Respiratory: Denies: Shortness of Breath Cardiovascular: Denies: Chest Pain GI/Abdominal: Denies: Abdominal Pain, Nausea, Vomiting Musculoskeletal: Denies: Neck Pain, Arm Pain, Back Pain, Leg Pain, Joint Pain Neurological: Reports: Dizziness (gone), Headache (mild). Denies: Numbness, Tingling, Trouble Speaking, Difficulty Walking, Weakness ED EXAM, GENERAL - Physical Exam Exam: See Below General Appearance: Alert, No Apparent Distress Ears: Normal External Exam Nose: Normal Inspection Head: Other (moderatly large hematoma L post. scalp, no facial injury) Neck: Supple, Non-Tender Respiratory/Chest: No Respiratory Distress, Lungs Clear, Normal Breath Sounds, Chest Non-Tender Cardiovascular: Regular Rate, Rhythm GI/Abdominal: Soft, Non-Tender Extremities: Normal Inspection, Normal Range of Motion, Non-Tender Neurological: Alert, Oriented, No Motor/Sensory Deficits Skin Exam: Warm, Dry, Normal Color Course - Vital Signs Last Recorded V/S: Last Vital Signs Temp 98.9 F 04/19/20 18:03 Pulse 78 04/19/20 20:09 Resp 16 04/19/20 20:09 BP 99/60 04/19/20 20:09 Pulse Ox 95 04/19/20 20:09 - Orders/Labs/Meds Orders: Active Orders 24 hr Category Date Time Status Head wo Cont [CT] Stat Exams 04/19/20 18:26 Taken Labs: Laboratory Tests 04/19/20 04/19/20 Range/Units 18:40 18:40 WBC 5.60 (3.98-10.04) K/mm3 RBC 4.36 (3.98-5.22) M/mm3 Hgb 12.9 (11.2-15.7) gm/dl Hct 40.7 (34.1-44.9) % MCV 93.3 (79.4-94.8) fl MCH 29.6 (25.6-32.2) pg MCHC 31.7 L (32.2-35.5) g/dl RDW Std Deviation 55.3 H (36.4-46.3) fL Plt Count 284 (182-369) K/mm3 MPV 10.2 (9.4-12.3) fl Neut % (Auto) 75.9 H (34.0-71.1) % Lymph % (Auto) 12.1 L (19.3-51.7) % [place] % (Auto) 9.1 (4.7-12.5) % Eos % (Auto) 2.7 (0.7-5.8) Baso % (Auto) 0.2 (0.1-1.2) % Neut # (Auto) 4.25 (1.56-6.13) K/mm3 Lymph # (Auto) 0.68 L (1.18-3.74) K/mm3 [place] # (Auto) 0.51 H (0.24-0.36) K/mm3 Eos # (Auto) 0.15 (0.04-0.36) K/mm3 Baso # (Auto) 0.01 (0.01-0.08) K/mm3 PT 27.2 H (9.7-11.7) SECONDS INR 2.59 - Re-Assessments/Exams Free Text/Narrative Re-Assessment/Exam: 04/19/20 19:[address] nl. Discharge instr. as documented. Departure - Departure Time of Disposition: 19:51 Disposition: Home, Self-Care 01 Condition: Fair Clinical Impression: Fall Qualifiers: Encounter type: initial encounter Qualified Code(s): W19.XXXA - Unspecified fall, initial encounter Contusion of scalp Qualifiers: Encounter type: initial encounter Qualified Code(s): S00.03XA - Contusion of scalp, initial encounter - Discharge Information Instructions: Facial or Scalp Contusion, [id number] Referrals: PCP,None [Primary Care Provider] - Forms: ED Department Discharge Additional Instructions: Rest. Ice packs and elevation the next 2 to 3 days. Hold your coumadin this evening. Resume tomorrow as previously prescribed. Return to ED as needed if symptoms worsening in any way. Sepsis Event Note (ED) - Evaluation Sepsis Screening Result: No Definite Risk - My Orders Last 24 Hours: My Active Orders 04/19/20 18:26 Head wo Cont [CT] Stat - Assessment/Plan Last 24 Hours: My Active Orders 04/19/20 18:26 Head wo Cont [CT] Stat
[2020-04-19 20:36] VITALS: BP 99/60; PULSE 78
== END 2020-04-19 20:09 | disposition home or self-care (01) ==
LOC: JD.ED 17:55
DX: S00.03XA Contusion of scalp, initial encounter (principal); I25.10 Atherosclerotic heart disease of native coronary artery without angina pectoris; E78.00 Pure hypercholesterolemia, unspecified; I10 Essential (primary) hypertension; M19.90 Unspecified osteoarthritis, unspecified site; F41.9 Anxiety disorder, unspecified; F32.9 Major depressive disorder, single episode, unspecified; E66.9 Obesity, unspecified; Z68.41 Body mass index [BMI] 40.0-44.9, adult; Z88.8 Allergy status to other drugs, medicaments and biological substances; Z79.82 Long term (current) use of aspirin; Z79.899 Other long term (current) drug therapy; Z86.711 Personal history of pulmonary embolism; Z79.01 Long term (current) use of anticoagulants; W01.198A Fall on same level from slipping, tripping and stumbling with subsequent striking against other object, initial encounter
CPT/HCPCS: 36415; 70450; 85025; 85610; 99282; 99284-25

== ENCOUNTER 2022-08-27 18:02 | Emergency (ER) | payer MEDICARE, OTHER ==
[2022-08-27 18:43] VITALS: BP 147/82; PULSE 73
== END 2022-08-27 22:11 | disposition home or self-care (01) ==
LOC: JD.ED 18:02
DX: S32.050A Wedge compression fracture of fifth lumbar vertebra, initial encounter for closed fracture (principal); I25.10 Atherosclerotic heart disease of native coronary artery without angina pectoris; E78.00 Pure hypercholesterolemia, unspecified; I10 Essential (primary) hypertension; E66.9 Obesity, unspecified; Z68.37 Body mass index [BMI] 37.0-37.9, adult; Z88.5 Allergy status to narcotic agent; Z88.8 Allergy status to other drugs, medicaments and biological substances; Z79.82 Long term (current) use of aspirin; Z79.899 Other long term (current) drug therapy; Z79.01 Long term (current) use of anticoagulants
CPT/HCPCS: 36415; 72131; 72131-26; 80053; 85025; 86140; 99284; 99284-25

== ENCOUNTER 2022-10-22 20:00 | Emergency (ER) | payer MEDICARE, OTHER ==
[2022-10-22] MEDS ORDERED: Sodium Chloride 0.9% 500 ML IV ONE (21:45)
[2022-10-22 21:47] VITALS: BP 107/58; PULSE 63
== END 2022-10-23 01:00 | disposition home or self-care (01) ==
LOC: JD.ED 20:00
DX: R42 Dizziness and giddiness (principal); I25.10 Atherosclerotic heart disease of native coronary artery without angina pectoris; E78.00 Pure hypercholesterolemia, unspecified; I10 Essential (primary) hypertension; M19.90 Unspecified osteoarthritis, unspecified site; E66.9 Obesity, unspecified; Z68.37 Body mass index [BMI] 37.0-37.9, adult; Z88.5 Allergy status to narcotic agent; Z88.8 Allergy status to other drugs, medicaments and biological substances; Z79.01 Long term (current) use of anticoagulants; Z79.899 Other long term (current) drug therapy; Z79.82 Long term (current) use of aspirin
CPT/HCPCS: 36415; 70450; 71045; 80053; 83735; 84484; 85025; 85379; 85610; 93005; 96360; 99284; J7030; 93010; 99283

== ENCOUNTER 2024-08-31 02:37 | Emergency (ER) | payer MEDICARE, OTHER ==
[2024-08-31 02:56] VITALS: BP 148/78; PULSE 87
[2024-08-31] MEDS: Ondansetron 4 MG Tab.DIS PO ONE (03:02)
[2024-08-31] MEDS: Pantoprazole 40 MG Tab.CR PO STA (03:04)
[2024-08-31] MEDS: Famotidine 20 MG Tab PO ONE (03:04)
[2024-08-31] MEDS: LORazepam 0.5 MG Tab PO ONE (04:12)
== END 2024-08-31 04:20 | disposition home or self-care (01) ==
LOC: JD.ED 02:37
DX: R11.0 Nausea (principal); T40.2X5A Adverse effect of other opioids, initial encounter; R14.0 Abdominal distension (gaseous); G89.29 Other chronic pain; I10 Essential (primary) hypertension; E78.00 Pure hypercholesterolemia, unspecified; I25.10 Atherosclerotic heart disease of native coronary artery without angina pectoris; Z88.8 Allergy status to other drugs, medicaments and biological substances; Z72.4 Inappropriate diet and eating habits; Z79.82 Long term (current) use of aspirin; Z79.899 Other long term (current) drug therapy; Z79.51 Long term (current) use of inhaled steroids; Z90.710 Acquired absence of both cervix and uterus
CPT/HCPCS: 74018; 99284; A9270

== ENCOUNTER 2024-10-17 14:45 | Emergency (ER) | payer MEDICARE, OTHER ==
[2024-10-17 17:35] LABS: BASOPHILS PERCENT AUTO 0.4 % (0.0-1.0); EOSINOPHILS ABSOLUTE AUTO 0.2 K/mm3 (0.0-0.4); EOSINOPHILS PERCENT AUTO 2.4 % (0.0-6.0); HEMATOCRIT 39.8 % (37.0-47.0); HEMOGLOBIN 12.7 gm/dl (12.0-16.0); IMMATURE GRAN ABSOLUTE AUTO 0.02 K/mm3 (0.00-0.05); IMMATURE GRAN PERCENT AUTO 0.2 % (0.0-0.4); LYMPHOCYTES ABSOLUTE AUTO 1.3 K/mm3 (1.0-4.8); LYMPHOCYTES PERCENT AUTO 14.8 % (24.0-44.0); MEAN CORPUSCULAR HEMOGLOBIN 30.7 pg (28.0-32.0); MEAN CORPUSCULAR HGB CONC 31.9 g/dl (32.0-36.0); MEAN CORPUSCULAR VOLUME 96.1 fl (83.0-99.0); MEAN PLATELET VOLUME 10.2 fl (9.4-12.3); MONOCYTES ABSOLUTE AUTO 0.8 K/mm3 (0.0-0.8); MONOCYTES PERCENT AUTO 8.9 % (0.0-8.0); NEUTROPHILS ABSOLUTE AUTO 6.5 K/mm3 (1.8-7.7); NEUTROPHILS PERCENT AUTO 73.3 % (41.0-71.0); PLATELET COUNT,PLT 318 K/mm3 (150-400); RED BLOOD CELL COUNT 4.14 M/mm3 (4.10-5.30); WHITE BLOOD CELL COUNT,WBC 8.92 K/mm3 (3.9-11.3)
[2024-10-17 17:41] LABS: INR 2.75; PROTHROMBIN TIME 27.3 SECONDS (9.7-12.0)
[2024-10-17 17:45] LABS: A/G RATIO 0.9 (1-2); ALBUMIN 3.2 g/dl (3.4-5.0); ANION GAP 8.8 (5-15); BILIRUBIN TOTAL 0.4 mg/dL (0.2-1.0); BUN/CREATININE RATIO 21.4 (14-18); CALCIUM 9.2 mg/dL (8.5-10.1); CREATININE 1.4 mg/dL (0.55-1.02); EST CRCL DRUG DOSING (CG) 30.5 mL/min; POTASSIUM,K 4.8 mEq/L (3.5-5.1); PROTEIN TOTAL,TP 6.9 g/dl (6.4-8.2)
[2024-10-17 21:19] VITALS: BP 104/74; PULSE 70
== END 2024-10-17 19:54 | disposition home or self-care (01) ==
LOC: JD.ED 14:45
DX: M79.661 Pain in right lower leg (principal); I10 Essential (primary) hypertension; I25.10 Atherosclerotic heart disease of native coronary artery without angina pectoris; E78.00 Pure hypercholesterolemia, unspecified; E66.9 Obesity, unspecified; Z88.8 Allergy status to other drugs, medicaments and biological substances; Z79.899 Other long term (current) drug therapy; Z90.710 Acquired absence of both cervix and uterus; W19.XXXA Unspecified fall, initial encounter
CPT/HCPCS: 36415; 70450; 70450-26; 72125; 72125-26; 73552-26-RT; 73552-RT; 73590-26-RT; 73590-RT; 80053; 85025; 85610; 99283